=== PATIENT | female | born 2000 ===

== ENCOUNTER 2020-11-26 22:04 | Emergency (ER) | payer OTHER ==
[~2020-11-26] VITALS: Ht 172.7 cm; Wt 90.7 kg
[~2020-11-26 22:04] MED LIST: METADATE CD20 MG
[2020-11-26] MEDS ORDERED: CLEOCIN HCL300 MG (22:17)
[2020-11-26] MEDS ORDERED: DUI500 (22:18)
== END 2020-11-26 22:54 | disposition home or self-care (01) ==
LOC: ER 22:04
DX: L02.31 Cutaneous abscess of buttock (principal)